=== PATIENT | female | born 1950 | race Caucasian/White ===

== ENCOUNTER 2018-06-29 07:25 | Inpatient (IN) | payer OTHER ==
[~2018-06-29] VITALS: Ht 152.4 cm; Wt 68.0 kg
[2018-06-29] VITALS (15 sets, daily range): BP systolic 112–155; BP diastolic 60–88
[~2018-06-29 07:25] MED LIST: ATEN-60; CLOP75TA28; GLYB5TAB8; LISI-646; METF-370; SIMV-13
[2018-06-29] MEDS ORDERED: SODIUM CHLORIDE 0.9% 1,000 ML IV ONE ×3 (08:44→15:33)
[2018-06-29 09:31] LABS: Basophils # (auto) 0 uL; Basophils % (auto) 0.2 % (0.0-2.0); Eosinophils # (auto) 0 uL; Eosinophils % (auto) 0.1 % (0.0-7.0); Lymphocytes # (auto) 0.3 uL; Mean Corpuscular Hgb Conc. 33.3 g/dL (32.0-36.0); Monocytes # (auto) 0.2 uL; Monocytes % (auto) 4.9 % (0.0-12.0); White Blood Cell 4.8 10^3/uL (4.4-10.8)
[2018-06-29 09:33] LABS: Hematocrit 22.4 % (36.0-46.0); Hemoglobin 7.5 g/dL (12.2-16.2); Lymphocytes % (auto) 6.4 % (10.0-50.0); Mean Corpuscular Volume 86.9 fL (80.0-100.0); Neutrophils # (auto) 4.2 uL; Neutrophils % (auto) 88.4 % (37.0-80.0); Platelet Count (auto) 80 10^3/uL (140-450); Red Blood Cells 2.58 10^6/uL (4.0-5.20)
[2018-06-29 09:57] LABS: Urine Bacteria FEW /hpf (None Seen); Urine Blood Negative /uL (Negative); Urine WBC 1 /hpf (0 - 5)
[2018-06-29 10:03] LABS: Albumin 2.5 g/dL (3.4-5.0); Calcium 7.8 mg/dL (8.5-10.1); Magnesium 1.7 mg/dL (1.6-2.6); Potassium 4.1 mmol/L (3.5-5.1)
[2018-06-29 10:06] LABS: BUN/Creatinine Ratio 21.8; Bilirubin, Total 0.6 mg/dL (0.2-1.0); Total Protein 5.8 g/dL (6.4-8.2)
[2018-06-29] MEDS ORDERED: PANTOPRAZOLE 40 MG/10 ML VIAL IV ONE ×2 (13:30→22:00)
[2018-06-29] MEDS ORDERED: OCTREOTIDE ACETATE 500 MCG in SODIUM CHL 0.9% 100 ML IV ONE (15:45)
[2018-06-29] MEDS ORDERED: PANTOPRAZOLE 80 MG in SODIUM CHL 0.9% 60 ML IV ONE (15:45)
[2018-06-29] MEDS ORDERED: InsuLIN REG 1unit/0.01ml Soln (100units/ml) IV ONE ×2 (15:45→18:30)
[2018-06-29] MEDS ORDERED: DEXTROSE (50%) 50ML SYRG IV PRN (16:45)
[2018-06-29] MEDS ORDERED: SODIUM CHLORIDE 0.9% 500 ML IV ONE (16:45)
[2018-06-29 16:50] LABS: INR 1.25 (0.9-1.15); Partial Thromboplastin Time 27.3 sec (23.78-33.04); Prothrombin Time 13.2 sec (9.27-12.13)
[2018-06-29] MEDS ORDERED: FLUMAZENIL 0.1 MG/ML INJ 10ML MDV IV ONE (17:04)
[2018-06-29] MEDS ORDERED: NALOXONE HCL 0.4 MG/ML VIAL ONE (17:04)
[2018-06-29] MEDS ORDERED: diphenhdrAMINE HCL 50 MG/1 ML VL ONE (17:05)
[2018-06-29] MEDS ORDERED: MIDAZOLAM HCL 5 MG/ML-1ML VIAL ONE (17:05)
[2018-06-29 17:10] LABS: Basophils # (auto) 0 uL; Basophils % (auto) 0.3 % (0.0-2.0); Eosinophils # (auto) 0 uL; Hematocrit 21.9 % (36.0-46.0); Hemoglobin 7.1 g/dL (12.2-16.2); Lymphocytes % (auto) 11.5 % (10.0-50.0); Mean Corpuscular Hemoglobin 28.3 pg (28.0-32.0); Mean Corpuscular Hgb Conc. 32.5 g/dL (32.0-36.0); Mean Corpuscular Volume 87.1 fL (80.0-100.0); Monocytes # (auto) 0.7 uL; Monocytes % (auto) 7.6 % (0.0-12.0); Neutrophils # (auto) 7.3 uL; Neutrophils % (auto) 80.6 % (37.0-80.0); Platelet Count (auto) 144 10^3/uL (140-450); Red Blood Cells 2.52 10^6/uL (4.0-5.20); Red Cell Distribution Width 14.4 % (11.8-14.3)
[2018-06-29] MEDS: fentaNYL CITRATE 100 MCG/2 ML VL ONE ×3 (17:22→17:32)
[2018-06-29] MEDS: SODIUM CHLORIDE 0.9% 1,000 ML IV SCH (17:23)
[2018-06-29] MEDS ORDERED: NITROGLYCERIN 0.4 MG SL TAB SL PRN (18:00)
[2018-06-29] MEDS ORDERED: MORPHINE SULF INJ 2 MG/ML SYRINGE 1ML IV PRN (18:00)
[2018-06-29] MEDS ORDERED: ONDANSETRON HCL 4 MG/2 ML VIAL ONE (19:43)
[2018-06-29] MEDS ORDERED: ONDANSETRON HCL 4 MG/2 ML VIAL IV PRN (19:45)
[2018-06-29] MEDS: InsuLIN REG 1unit/0.01ml Soln (100units/ml) SC SCH ×2 (21:27→23:45)
[2018-06-29] MEDS: ACCU-CHEK COMFORT CURVE STRIP VI SCH ×2 (21:27→23:42)
[2018-06-30] VITALS (7 sets, daily range): BP systolic 115–147; BP diastolic 58–86
[2018-06-30] MEDS: SODIUM CHLORIDE 0.9% 1,000 ML IV SCH ×2 (02:18→08:43)
[2018-06-30 03:20] LABS: Basophils # (auto) 0 uL; Basophils % (auto) 0.2 % (0.0-2.0); Eosinophils # (auto) 0.1 uL; Eosinophils % (auto) 0.8 % (0.0-7.0); Hematocrit 24.6 % (36.0-46.0); Hemoglobin 8.4 g/dL (12.2-16.2); Lymphocytes # (auto) 1.3 uL; Lymphocytes % (auto) 14.8 % (10.0-50.0); Mean Corpuscular Hgb Conc. 34.2 g/dL (32.0-36.0); Mean Corpuscular Volume 87.5 fL (80.0-100.0); Monocytes # (auto) 1.2 uL; Monocytes % (auto) 13.9 % (0.0-12.0); Neutrophils % (auto) 70.3 % (37.0-80.0); Platelet Count (auto) 106 10^3/uL (140-450); Red Blood Cells 2.81 10^6/uL (4.0-5.20); Red Cell Distribution Width 14.1 % (11.8-14.3); White Blood Cell 8.5 10^3/uL (4.4-10.8)
[2018-06-30 03:38] LABS: Calcium 7.9 mg/dL (8.5-10.1); Potassium 3.8 mmol/L (3.5-5.1)
[2018-06-30 03:42] LABS: BUN/Creatinine Ratio 24.6
[2018-06-30] MEDS: InsuLIN REG 1unit/0.01ml Soln (100units/ml) SC SCH ×4 (04:30→20:59)
[2018-06-30] MEDS: ACCU-CHEK COMFORT CURVE STRIP VI SCH ×4 (04:30→20:59)
[2018-06-30] MEDS ORDERED: ACETAMINOPHEN 325 MG TAB PO PRN (08:30)
--- NOTE | 2018-06-30 11:43 | NUR ---
I faxed transfer order to [facility] along with updated clinical information including ER notes, H&P, vitals, labs, xrays, medication list, consults and operative note.
[2018-06-30] MEDS ORDERED: DEXTROSE (50%) 50ML SYRG IV PRN (11:45)
--- NOTE | 2018-06-30 12:45 | NUR ---
Telemetry admit from ER [facility] admitted to Telemetry unit after SBAR received. Patient oriented to Danielle Carrasco RN primary RN, Central unit, room 216, bed B, and unit policies regarding patient care and visiting hours. Patient now on continuous telemetry monitoring, tele box #33 and telemetry reading on arrival to unit is SR. Patient weighed by bedscale and encouraged to call if they need something. All questions and concerns addressed, patient verbalized understanding. Note:
[2018-06-30] MEDS ORDERED: PROPRANOLOL HCL 20 MG TAB PO SCH (14:00)
[2018-06-30] MEDS ORDERED: FURO40TA PO (14:41)
[2018-06-30] MEDS ORDERED: [UNRECOGNIZED DRUG - CODE] PO (14:41)
[2018-06-30] MEDS ORDERED: FAM20T PO (14:41)
[2018-06-30] MEDS ORDERED: CALCTAB5 PO (14:41)
[2018-06-30] MEDS ORDERED: SIMV-8 PO (14:41)
[2018-06-30] MEDS ORDERED: POTA10TA51 PO (14:41)
[2018-06-30] MEDS ORDERED: FIBECHW OR (14:41)
[2018-06-30] MEDS ORDERED: ASPI81CH43 PO (14:41)
--- NOTE | 2018-06-30 15:15 | NUR ---
I called [facility] [phone] and spoke with lidar analyst, she said that the assigned case assistant is [employer], he is working on the transfer and will give me a call.
--- NOTE | 2018-06-30 15:30 | NUR ---
Received call from [facility]. Per patient's chart to be reviewed but transfer more than likely to occur today. Will continue to monitor.
--- NOTE | 2018-06-30 18:50 | NUR ---
REGARDING [place] TRANSFER Received call form Hermelinda from [place]. Information received regarding transfer. Patient to be transferred to [facility] and P/U 2100, [place] to call at 2000 for VS. TELE 610, , and accepting MD Dr Almanzar.
--- NOTE | 2018-06-30 19:00 | NUR ---
Patient care and report handed off to Niyah HAMM. Made aware patient to be transferred to [facility] and P/U 2100, [place] to call at 2000 for VS. Incoming RN made aware to call report to [facility] 610, , and accepting MD Dr Almanzar. Made aware imaging disc ordered but need to be collected by Niyah HAMM.
--- NOTE | 2018-06-30 19:30 | NUR ---
Opening Shift Note Assumed care of patient, awake and alert oriented x4. No S/S of distress/SOB noted. Patient is resting in bed with breaths even and unlabored. Bed is in lowest locked position with bed rails up x2 and call light is within reach of the patient. Instructed on POC and to call for assist PRN.
--- NOTE | 2018-06-30 19:55 | NUR ---
Imaging disk picked up from radiology and placed in patient transfer packet.
--- NOTE | 2018-06-30 20:10 | NUR ---
REGARDING [place] TRANSFER Received call form Giovany from [place]. Information received regarding transfer. Patient to be transferred to [facility] and picked up at 2100. TELE RM 610, , and accepting MD Dr Almanzar. Vital signs given to Giovany from [place]. Blood pressure 123/66, heart rate 85, oxygen saturation 94% room air, temperature 99.7 and respirations at 18.
--- NOTE | 2018-06-30 20:45 | NUR ---
Report given to [facility] nurse: Called [facility] and report of patient given to Francisco HAMM from [place].
--- NOTE | 2018-06-30 21:23 | NUR ---
Discharge Transfers Patient is being transferred to [facility] in [place]. Patient is to follow up with accepting doctor Rony Almaznar at the receiving facility. Patients vital signs are stable at Blood pressure 123/66, heart rate 85 oxygen saturations at 94% room air and temperature at 99.7 with respirations at 18. Patient is resting in bed with breaths even and unlabored, no S/S of distress noted. Discharge paperwork given to EMR.
[2018-06-30] MEDS ORDERED: PANTOPRAZOLE 40 MG/10 ML VIAL IV SCH (22:00)
== END 2018-06-30 21:14 | disposition short-term general hospital (02) | DRG 432 ==
LOC: ER 07:25 → EDBD 07:25 → OVERFLOW 17:57 → TELE-CENTR 06-30 12:42
PROVIDERS: ADMIT Nurse Practitioner Acute Care; ATTEND Internal Medicine
PROC: 30233N1 Transfusion of Nonautologous Red Blood Cells into Peripheral Vein, Percutaneous Approach (ICD-10-PCS; 2018-06-29)
PROC: 06L38CZ Occlusion of Esophageal Vein with Extraluminal Device, Via Natural or Artificial Opening Endoscopic (ICD-10-PCS; 2018-06-29)
PROC: 30233K1 Transfusion of Nonautologous Frozen Plasma into Peripheral Vein, Percutaneous Approach (ICD-10-PCS; principal; 2018-06-29 16:45)
DX: K70.30 Alcoholic cirrhosis of liver without ascites (principal); E43 Unspecified severe protein-calorie malnutrition; I85.11 Secondary esophageal varices with bleeding; D62 Acute posthemorrhagic anemia; D69.6 Thrombocytopenia, unspecified; E11.21 Type 2 diabetes mellitus with diabetic nephropathy; E11.22 Type 2 diabetes mellitus with diabetic chronic kidney disease; Z68.29 Body mass index [BMI] 29.0-29.9, adult; Z88.0 Allergy status to penicillin; E78.5 Hyperlipidemia, unspecified; I12.9 Hypertensive chronic kidney disease with stage 1 through stage 4 chronic kidney disease, or unspecified chronic kidney disease; N18.9 Chronic kidney disease, unspecified; Z79.02 Long term (current) use of antithrombotics/antiplatelets; Z79.84 Long term (current) use of oral hypoglycemic drugs; Z79.899 Other long term (current) drug therapy; Z86.73 Personal history of transient ischemic attack (TIA), and cerebral infarction without residual deficits; E11.65 Type 2 diabetes mellitus with hyperglycemia
CPT/HCPCS: 36415; 36430; 71046; 80048; 80053; 80061; 81001; 82962; 83036; 83525; 83735; 84443; 85025; 85610; 85730; 86850; 86900; 86901; 86920; 96361; 96365; 96367; 96375; C9113; G0378; J1815; J2250; J2405

== ENCOUNTER 2021-03-16 13:20 | Emergency (ER) | payer OTHER ==
[~2021-03-16] VITALS: Ht 160 cm; Wt 90.7 kg
[~2021-03-16 13:20] MED LIST changes: +ASPI81CH43 PO; -ATEN-60; +CALCTAB5 PO; -CLOP75TA28; +FAMO20TA10 PO; +FIBECHW OR; +FURO1TAB31 PO; -GLYB5TAB8; -LISI-646; -METF-370; +MULT-980 PO; +POTA10TA51 PO; -SIMV-13; +SIMV-8 PO
[2021-03-16] MEDS ORDERED: ACETAMINOPHEN 325 MG TAB PO ONE (16:45)
[2021-03-16] MEDS ORDERED: IBUPROFEN 400 MG TAB PO ONE (19:30)
[2021-03-16] MEDS ORDERED: HYDROcodone-ACET 7.5/325MG TAB PO ONE (19:30)
[2021-03-16 20:18] VITALS: BP 120/63
== END 2021-03-16 20:38 | disposition home or self-care (01) ==
LOC: EDBD 13:20 → ER 13:20
DX: S42.201A Unspecified fracture of upper end of right humerus, initial encounter for closed fracture (principal); E11.9 Type 2 diabetes mellitus without complications; E78.5 Hyperlipidemia, unspecified; I10 Essential (primary) hypertension; Z88.0 Allergy status to penicillin; Z86.73 Personal history of transient ischemic attack (TIA), and cerebral infarction without residual deficits; W18.09XA Striking against other object with subsequent fall, initial encounter; Y93.89 Activity, other specified; Y92.89 Other specified places as the place of occurrence of the external cause; Y99.8 Other external cause status
CPT/HCPCS: 72125; 73060

== ENCOUNTER 2022-05-09 15:22 | Emergency (ER) | payer OTHER ==
[~2022-05-09] VITALS: Ht 165.1 cm; Wt 80.0 kg
[2022-05-09 17:06] LABS: Basophils # (auto) 0 10 ^3/uL (0-0.2); Eosinophils # (auto) 0 10 ^3/uL (0-0.8); Eosinophils % (auto) 0.6 % (0.0-7.0); Lymphocytes # (auto) 0.4 10 ^3/uL (0.4-5.4)
[2022-05-09 17:15] LABS: Hematocrit 20.1 % (36.0-46.0); Lymphocytes % (auto) 9.4 % (10.0-50.0); Mean Corpuscular Hemoglobin 29.5 pg (28.0-32.0); Monocytes # (auto) 0.4 10 ^3/uL (0-1.3); Neutrophils # (auto) 3.5 10 ^3/uL (1.6-8.6); Red Blood Cells 2.18 10^6/uL (4.0-5.20); Red Cell Distribution Width 15.9 % (11.8-14.3); White Blood Cell 4.4 10^3/uL (4.4-10.8)
[2022-05-09 17:18] LABS: Hemoglobin 6.4 g/dL (12.2-16.2)
[2022-05-09 17:29] LABS: Albumin 3.1 g/dL (3.4-5.0); Calcium 8.8 mg/dL (8.5-10.1); Potassium 4.8 mmol/L (3.5-5.1)
[2022-05-09 17:33] LABS: BUN/Creatinine Ratio 19.8; Bilirubin, Total 0.4 mg/dL (0.2-1.0); Total Protein 6.4 g/dL (6.4-8.2)
[2022-05-09 20:15] LABS: Urine Bacteria NONE SEEN /hpf (None Seen); Urine Blood 1+ /uL (Negative); Urine Hyaline Cast FEW /lpf (0 - 2); Urine Specific Gravity 1.014 (1.001-1.035); Urine WBC <1 /hpf (0 - 5)
[2022-05-09 21:04] LABS: Hematocrit 17.9 % (36.0-46.0)
[2022-05-09 21:09] LABS: Hemoglobin 5.9 g/dL (12.2-16.2)
[2022-05-09] MEDS ORDERED: PANTOPRAZOLE 40 MG/10 ML VIAL INJ IV ONE (21:30)
[2022-05-09] MEDS ORDERED: OCTREOTIDE ACETATE 100 MCG in SODIUM CHL 0.9% 50 ML IV ONE (22:15)
[2022-05-09] MEDS ORDERED: cefTRIAXone 1GM/50ML D5W 50 ML IV ONE (22:45)
[2022-05-09] MEDS ORDERED: OCTREOTIDE ACETATE 100 MCG/ML VL ONE (22:59)
[2022-05-10 00:13] VITALS: BP 109/49
[2022-05-10 00:31] LABS: INR 1.16 (0.9-1.15)
[2022-05-10 00:40] VITALS: BP 101/52
[2022-05-10 01:15] VITALS: BP 101/54
[2022-05-10] MEDS ORDERED: HYDROcodone-ACET 10/325MG TAB PO ONE (01:30)
[2022-05-10 03:05] VITALS: BP 107/57
[2022-05-10 09:50] VITALS: BP 97/50
== END 2022-05-09 20:32 | disposition short-term general hospital (02) ==
LOC: EDBD 15:22 → ER 15:23
DX: D64.9 Anemia, unspecified (principal); K92.2 Gastrointestinal hemorrhage, unspecified; E11.9 Type 2 diabetes mellitus without complications; E78.5 Hyperlipidemia, unspecified; I10 Essential (primary) hypertension; Z86.73 Personal history of transient ischemic attack (TIA), and cerebral infarction without residual deficits; Z20.822 Contact with and (suspected) exposure to COVID-19
CPT/HCPCS: 36415; 36430; 71045; 80053; 81001; 82270; 83605; 83880; 84484; 85014; 85018; 85025; 85610; 85730; 86850; 86900; 86901; 86920; 87426; 87804; 93005; 96365; 96375; 99291; C9113; J0696; P9016

== ENCOUNTER 2023-04-30 12:19 | Emergency (ER) | payer OTHER ==
[~2023-04-30] VITALS: Ht 160 cm; Wt 77.2 kg
[~2023-04-30 12:19] MED LIST changes: -SIMV-8 PO; +SIMV20TA20 PO
[2023-04-30 13:06] LABS: Basophils # (auto) 0 10 ^3/uL (0-0.2); Basophils % (auto) 0.1 % (0.0-2.0); Eosinophils # (auto) 0 10 ^3/uL (0-0.8); Eosinophils % (auto) 0.3 % (0.0-7.0); Hematocrit 36.3 % (36.0-46.0); Hemoglobin 11.8 g/dL (12.2-16.2); Lymphocytes # (auto) 0.4 10 ^3/uL (0.4-5.4); Lymphocytes % (auto) 5.5 % (10.0-50.0); Mean Corpuscular Hemoglobin 29.9 pg (28.0-32.0); Mean Corpuscular Hgb Conc. 32.5 g/dL (32.0-36.0); Mean Corpuscular Volume 91.9 fL (80.0-100.0); Monocytes # (auto) 0.3 10 ^3/uL (0-1.3); Monocytes % (auto) 5.1 % (0.0-12.0); Red Blood Cells 3.95 10^6/uL (4.0-5.20); Red Cell Distribution Width 17.2 % (11.8-14.3); White Blood Cell 6.8 10^3/uL (4.4-10.8)
[2023-04-30 13:20] VITALS: PULSE 72; RESP 18; O2SAT 96
[2023-04-30 13:26] LABS: Alanine Aminotransferase 25 U/L (7-40); Albumin 3.8 g/dL (3.2-4.8); Alkaline Phosphatase 140 U/L (46-116); Anion Gap 8 (5-15); Aspartate Aminotransferase 27 U/L (13-40); Blood Urea Nitrogen 25 mg/dL (9-23); Calcium 9.3 mg/dL (8.7-10.4); Carbon Dioxide 25 mmol/L (20-30); Chloride 108 mmol/L (98-107); Glucose 190 mg/dL (74-106); Lipase 34 U/L (12-53); Potassium 3.9 mmol/L (3.5-5.1); Sodium 141 mmol/L (136-145)
[2023-04-30 13:27] LABS: Bilirubin, Total 0.9 mg/dL (0.2-1.0); Total Protein 6.9 g/dL (5.7-8.2)
[2023-04-30] MEDS ORDERED: ONDANSETRON HCL 4 MG/2 ML VIAL IV ONE (13:30)
[2023-04-30] MEDS ORDERED: MORPHINE SULFATE INJ 2 MG/ml SYRG IV ONE (13:30)
[2023-04-30 13:49] LABS: Urine Bacteria NONE SEEN /hpf (None Seen); Urine Blood Negative /uL (Negative); Urine Clarity Clear (Clear); Urine Hyaline Cast FEW /lpf (0 - 2); Urine Protein, UAD Negative (Negative); Urine Specific Gravity 1.012 (1.001-1.035); Urine Urobilinogen Normal (Negative); Urine WBC 1 /hpf (0 - 5); Urine pH 5.5 (5.0-8.0)
[2023-04-30 13:53] LABS: Urine Color Straw (Yellow)
[2023-04-30 18:14] LABS: COVID19 ANTIGEN SOFIA FIA NEGATIVE (NEGATIVE)
[2023-04-30 18:28] VITALS: BP 115/96; PULSE 82; RESP 16; TEMP 97.9; O2SAT 97
== END 2023-04-30 18:46 | disposition short-term general hospital (02) ==
LOC: ER 12:19 → EDBD 12:19 → ER 18:46
DX: K76.9 Liver disease, unspecified (principal); R11.2 Nausea with vomiting, unspecified; I10 Essential (primary) hypertension; E11.9 Type 2 diabetes mellitus without complications; E78.5 Hyperlipidemia, unspecified; Z86.2 Personal history of diseases of the blood and blood-forming organs and certain disorders involving the immune mechanism; Z86.73 Personal history of transient ischemic attack (TIA), and cerebral infarction without residual deficits; Z79.82 Long term (current) use of aspirin; Z79.899 Other long term (current) drug therapy; Z88.0 Allergy status to penicillin; Z20.822 Contact with and (suspected) exposure to COVID-19
CPT/HCPCS: 36415; 74176; 80053; 81001; 83690; 85025; 87426; 96374; 96375; 99285; J2270; J2405

== ENCOUNTER 2023-07-23 20:33 | Emergency (ER) | payer OTHER ==
[~2023-07-23] VITALS: Ht 167.6 cm; Wt 90.0 kg
[~2023-07-23 20:33] MED LIST changes: +POTA-36 PO; -POTA10TA51 PO
[2023-07-23 21:26] LABS: Basophils # (auto) 0 10 ^3/uL (0-0.2); Basophils % (auto) 0.4 % (0.0-2.0); Eosinophils # (auto) 0 10 ^3/uL (0-0.8); Eosinophils % (auto) 0.4 % (0.0-7.0); Hematocrit 35.6 % (36.0-46.0); Hemoglobin 11.8 g/dL (12.2-16.2); Lymphocytes # (auto) 0.4 10 ^3/uL (0.4-5.4); Lymphocytes % (auto) 4.9 % (10.0-50.0); Mean Corpuscular Hgb Conc. 33.2 g/dL (32.0-36.0); Mean Corpuscular Volume 90.4 fL (80.0-100.0); Monocytes # (auto) 0.4 10 ^3/uL (0-1.3); Monocytes % (auto) 4.9 % (0.0-12.0); Neutrophils # (auto) 6.5 10 ^3/uL (1.6-8.6); Neutrophils % (auto) 89.4 % (37.0-80.0); Red Blood Cells 3.94 10^6/uL (4.0-5.20); Red Cell Distribution Width 15.9 % (11.8-14.3); White Blood Cell 7.3 10^3/uL (4.4-10.8)
[2023-07-23 21:46] LABS: Alanine Aminotransferase 17 U/L (7-40); Albumin 3.7 g/dL (3.2-4.8); Alkaline Phosphatase 164 U/L (46-116); Anion Gap 10 (5-15); Aspartate Aminotransferase 29 U/L (13-40); BUN/Creatinine Ratio 13.9 (10.0-20.0); Bilirubin, Total 0.8 mg/dL (0.2-1.0); Blood Urea Nitrogen 16 mg/dL (9-23); Calcium 9.5 mg/dL (8.7-10.4); Carbon Dioxide 22 mmol/L (20-30); Chloride 106 mmol/L (98-107); Glucose 166 mg/dL (74-106); Lipase 37 U/L (12-53); Potassium 4.2 mmol/L (3.5-5.1); Sodium 138 mmol/L (136-145); Total Protein 6.9 g/dL (5.7-8.2)
[2023-07-24] MEDS: ONDANSETRON ODT 4 MG TAB PO ONE (01:45)
[2023-07-24] MEDS: MORPHINE SULFATE INJ 2 MG/ml SYRG IM ONE (01:47)
[2023-07-24] MEDS: ONDANSETRON HCL 4 MG/2 ML VIAL IV ONE ×2 (05:01→07:46)
[2023-07-24] MEDS: MORPHINE SULFATE 4 MG/ML SYR/VIAL IV ONE (05:02)
[2023-07-24 07:17] LABS: Urine Bacteria None Seen /hpf (None Seen)
[2023-07-24 07:34] LABS: Urine Blood 1+ /uL (Negative); Urine Clarity Clear (Clear); Urine Color Yellow (Yellow); Urine Protein, UAD TRACE (Negative); Urine Urobilinogen Normal (Negative); Urine WBC 5 /hpf (0 - 5); Urine pH 5.5 (5.0-9.0)
[2023-07-24 07:38] VITALS: TEMP 97.5
[2023-07-24 07:47] VITALS: BP 135/89
[2023-07-24] MEDS: MORPHINE SULFATE INJ 2 MG/ml SYRG IV ONE (07:47)
[2023-07-24 07:50] VITALS: PULSE 75; RESP 19; O2SAT 95
== END 2023-07-24 08:25 | disposition short-term general hospital (02) ==
LOC: EDSEX 20:33 → ER 20:33 → EDBD 20:33 → ER 07-24 08:25
DX: K80.50 Calculus of bile duct without cholangitis or cholecystitis without obstruction (principal); R10.13 Epigastric pain; I10 Essential (primary) hypertension; E11.9 Type 2 diabetes mellitus without complications; E78.5 Hyperlipidemia, unspecified; Z86.73 Personal history of transient ischemic attack (TIA), and cerebral infarction without residual deficits; Z86.2 Personal history of diseases of the blood and blood-forming organs and certain disorders involving the immune mechanism; Z79.82 Long term (current) use of aspirin; Z79.899 Other long term (current) drug therapy; Z88.0 Allergy status to penicillin
CPT/HCPCS: 36415; 74176; 80053; 81001; 83690; 85025; 93005; 96372; 96374; 96375; 96376; J2405; Q0162

== ENCOUNTER 2023-09-09 06:04 | Emergency (ER) | payer OTHER ==
[~2023-09-09] VITALS: Ht 160 cm; Wt 77.3 kg
[2023-09-09 06:35] VITALS: PULSE 61; RESP 11; O2SAT 99
[2023-09-09 06:48] LABS: Basophils # (auto) 0 10 ^3/uL (0-0.2); Basophils % (auto) 0.2 % (0.0-2.0); Eosinophils # (auto) 0 10 ^3/uL (0-0.8); Eosinophils % (auto) 0.6 % (0.0-7.0); Hemoglobin 11.7 g/dL (12.2-16.2); Lymphocytes # (auto) 0.3 10 ^3/uL (0.4-5.4); Lymphocytes % (auto) 4.2 % (10.0-50.0); Mean Corpuscular Hemoglobin 30.2 pg (28.0-32.0); Mean Corpuscular Hgb Conc. 33.3 g/dL (32.0-36.0); Mean Corpuscular Volume 90.9 fL (80.0-100.0); Monocytes # (auto) 0.5 10 ^3/uL (0-1.3); Neutrophils # (auto) 5.4 10 ^3/uL (1.6-8.6); Red Blood Cells 3.85 10^6/uL (4.0-5.20); Red Cell Distribution Width 17.3 % (11.8-14.3); White Blood Cell 6.3 10^3/uL (4.4-10.8)
[2023-09-09 06:54] LABS: Alanine Aminotransferase 25 U/L (7-40); Albumin 3.9 g/dL (3.2-4.8); Alkaline Phosphatase 144 U/L (46-116); Anion Gap 12 (5-15); Aspartate Aminotransferase 34 U/L (13-40); BUN/Creatinine Ratio 18.3 (10.0-20.0); Bilirubin, Total 0.9 mg/dL (0.2-1.0); Blood Urea Nitrogen 19 mg/dL (9-23); Calcium 9.6 mg/dL (8.7-10.4); Carbon Dioxide 23 mmol/L (20-30); Chloride 108 mmol/L (98-107); Glucose 187 mg/dL (74-106); Lipase 34 U/L (12-53); Potassium 4.1 mmol/L (3.5-5.1); Sodium 143 mmol/L (136-145); Total Protein 6.3 g/dL (5.7-8.2)
[2023-09-09] MEDS: ONDANSETRON HCL 4 MG/2 ML VIAL IV ONE (07:08)
[2023-09-09] MEDS: PANTOPRAZOLE 40 MG/10 ML VIAL INJ IV ONE (07:08)
[2023-09-09] MEDS: MORPHINE SULFATE 4 MG/ML SYR/VIAL IV ONE (07:09)
[2023-09-09 07:35] VITALS: PULSE 61; RESP 12; O2SAT 91
[2023-09-09 11:37] VITALS: BP 132/69; PULSE 78; RESP 12; TEMP 97.5; O2SAT 100
== END 2023-09-09 12:07 | disposition short-term general hospital (02) ==
LOC: EDBD 06:04 → ER 06:04
DX: K80.20 Calculus of gallbladder without cholecystitis without obstruction (principal); D69.6 Thrombocytopenia, unspecified; R10.13 Epigastric pain; I12.9 Hypertensive chronic kidney disease with stage 1 through stage 4 chronic kidney disease, or unspecified chronic kidney disease; E11.22 Type 2 diabetes mellitus with diabetic chronic kidney disease; N18.9 Chronic kidney disease, unspecified; E78.5 Hyperlipidemia, unspecified; Z86.73 Personal history of transient ischemic attack (TIA), and cerebral infarction without residual deficits; Z86.2 Personal history of diseases of the blood and blood-forming organs and certain disorders involving the immune mechanism; Z98.890 Other specified postprocedural states; Z88.0 Allergy status to penicillin; Z79.899 Other long term (current) drug therapy
CPT/HCPCS: 36415; 74176; 80053; 83690; 84484; 85025; 93005; 96374; 96375; 99285; C9113; J2270; J2405

== ENCOUNTER 2023-09-18 08:13 | Emergency (ER) | payer OTHER ==
[~2023-09-18] VITALS: Ht 160 cm; Wt 77.2 kg
[2023-09-18 08:54] LABS: Hematocrit 40.2 % (36.0-46.0); Hemoglobin 13.5 g/dL (12.2-16.2); Mean Corpuscular Hemoglobin 30.3 pg (28.0-32.0); Mean Corpuscular Hgb Conc. 33.5 g/dL (32.0-36.0); Mean Corpuscular Volume 90.3 fL (80.0-100.0); Red Blood Cells 4.45 10^6/uL (4.0-5.20); Red Cell Distribution Width 17.3 % (11.8-14.3); White Blood Cell 10.8 10^3/uL (4.4-10.8)
[2023-09-18 09:01] LABS: Basophils % (manual) 0 (0.0-2.0); Blast Cells 0; Eosinophils % (manual) 0 (0-7); Metamyelocytes % 0; Myelocytes % 0; Promyelocytes % 0; Reactive Lymphocytes 0
[2023-09-18 09:13] LABS: Alanine Aminotransferase 21 U/L (7-40); Albumin 3.6 g/dL (3.2-4.8); Alkaline Phosphatase 140 U/L (46-116); Anion Gap 9 (5-15); Aspartate Aminotransferase 26 U/L (13-40); BUN/Creatinine Ratio 17.2 (10.0-20.0); Blood Urea Nitrogen 26 mg/dL (9-23); Calcium 9.2 mg/dL (8.5-10.1); Carbon Dioxide 21 mmol/L (20-30); Chloride 101 mmol/L (98-107); Glucose 164 mg/dL (74-106); Potassium 4.5 mmol/L (3.5-5.1); Sodium 131 mmol/L (136-145)
[2023-09-18 09:14] LABS: Bilirubin, Total 1.8 mg/dL (0.2-1.0); Total Protein 6.5 g/dL (5.7-8.2)
[2023-09-18 09:30] LABS: Band Neutrophils % (manual) 11; Lymphocytes % (manual) 4 (10.0-50.0); Monocytes % (manual) 10 (0-12); Platelet Estimate Adequate
[2023-09-18] MEDS: MORPHINE SULFATE 4 MG/ML SYR/VIAL IV ONE (09:51)
[2023-09-18] MEDS: ONDANSETRON HCL 4 MG/2 ML VIAL IV ONE (09:51)
[2023-09-18 10:01] LABS: INR 1.18 (0.9-1.15); Prothrombin Time 12.4 sec (9.3-11.8)
[2023-09-18 10:33] LABS: Lactic Acid w/Reflex 2.9 mmol/L (0.4-2.0)
[2023-09-18 10:50] LABS: Lipase 68 U/L (12-53)
[2023-09-18] MEDS: LACTATED RINGER'S 1,550 ML IV ONE (11:34)
[2023-09-18] MEDS: levoFLOXacin 500MG 100 ML IV ONE (11:34)
[2023-09-18] MEDS: metroNIDAZOLE 500MG/100ML 100 ML IV ONE (11:34)
[2023-09-18 14:51] VITALS: BP 95/65; PULSE 106; RESP 17; TEMP 97.9; O2SAT 96
== END 2023-09-18 14:57 | disposition short-term general hospital (02) ==
LOC: EDUNIT# 08:13 → ER 08:13 → EDBD 08:13 → ER 14:57
DX: R18.8 Other ascites (principal); I12.9 Hypertensive chronic kidney disease with stage 1 through stage 4 chronic kidney disease, or unspecified chronic kidney disease; E11.22 Type 2 diabetes mellitus with diabetic chronic kidney disease; N18.9 Chronic kidney disease, unspecified; E78.5 Hyperlipidemia, unspecified; Z86.73 Personal history of transient ischemic attack (TIA), and cerebral infarction without residual deficits; Z88.0 Allergy status to penicillin; Z86.2 Personal history of diseases of the blood and blood-forming organs and certain disorders involving the immune mechanism; Z98.51 Tubal ligation status
CPT/HCPCS: 36415; 74176; 80053; 83605; 83690; 83735; 85007; 85027; 85610; 85730; 93005; 96365; 96368; 96375; 99285; J1956; J2270; J2405; J3490; J7120